=== PATIENT | male | born 1960 | race African-American/Black ===

== ENCOUNTER 2017-11-08 11:43 | Emergency (ER) | payer OTHER ==
[~2017-11-08] VITALS: Ht 172.7 cm; Wt 66.2 kg
[2017-11-08] MEDS ORDERED: NORVASC2.5 MG PO (11:54)
[2017-11-08 14:29] LABS: URINE BILIRUBIN NEGATIVE (Negative); URINE BLOOD NEGATIVE (Negative); URINE CLARITY CLEAR; URINE COLOR YELLOW; URINE GLUCOSE-RANDOM* NEGATIVE (Negative); URINE KETONES NEGATIVE (Negative); URINE NITRITE-REFLEX NEGATIVE (Negative); URINE PROTEIN (DIPSTICK) TRACE (Negative); URINE SPECIFIC GRAVITY <= 1.005 (1.005-1.035)
[2017-11-08 14:32] LABS: ABSOLUTE NEUTROPHILS 14.8 thou/uL (1.4-8.2); BASOPHILS 0.2 % (0.0-2.0); EOSINOPHILS 0.1 % (0.0-3.0); HEMATOCRIT 40.3 % (42.0-52.0); HEMOGLOBIN 13.9 gm/dL (14.0-18.0); LYMPHOCYTES 4.9 % (24.0-44.0); MCHC 34.6 g/dL (28.0-37.0); MCV 69.6 fL (80.0-100.0); MONOCYTES 11.3 % (1.0-8.0); PLATELET COUNT 223 thou/uL (150-400); POLYS 83.5 % (36.0-66.0); RBC 5.79 mil/uL (4.50-6.00); RDW 15.4 % (10.5-14.5); WBC 17.7 thou/uL (4.0-11.0)
[2017-11-08 14:40] LABS: URINE LEUKOCYTES-REFLEX TRACE (Negative)
[2017-11-08 15:04] LABS: MICROCYTES SLIGHT; POLYCHROMASIA OCCASIONAL
[2017-11-08 15:30] LABS: CREATININE 1.1 mg/dL (0.7-1.3); POTASSIUM 3.4 mmol/L (3.5-5.1)
[2017-11-08] MEDS ORDERED: CIPRO500 MG PO (15:46)
[2017-11-08] MEDS ORDERED: NORCO 5-325 TA1 EACH PO (16:06)
[2017-11-08 16:15] VITALS: BP 134/87
== END 2017-11-08 16:15 | disposition home or self-care (01) ==
LOC: ER 11:43
PROVIDERS: Nurse Practitioner Family
DX: N45.1 Epididymitis (principal); F17.210 Nicotine dependence, cigarettes, uncomplicated

== ENCOUNTER 2017-11-10 07:41 | Emergency (ER) | payer OTHER ==
[~2017-11-10] VITALS: Ht 172.7 cm; Wt 66.2 kg
[~2017-11-10 07:41] MED LIST: CIPRO500 MG PO; NORCO 5-325 TA1 EACH PO; NORVASC2.5 MG PO
[2017-11-10 08:38] LABS: URINE BILIRUBIN NEGATIVE (Negative); URINE BLOOD NEGATIVE (Negative); URINE CLARITY CLEAR; URINE COLOR YELLOW; URINE GLUCOSE-RANDOM* NEGATIVE (Negative); URINE KETONES NEGATIVE (Negative); URINE LEUKOCYTES NEGATIVE (Negative); URINE NITRITE NEGATIVE (Negative); URINE PROTEIN (DIPSTICK) NEGATIVE (Negative); URINE UROBILINOGEN 0.2 E.U./dl (0.2-1.0)
[2017-11-10 09:08] LABS: CALCIUM 8.9 mg/dL (8.5-10.1); POTASSIUM 3.6 mmol/L (3.5-5.1)
[2017-11-10 09:14] LABS: ALBUMIN 3.3 g/dL (3.4-5.0); DIRECT BILIRUBIN 0.1 mg/dL (<0.1-0.3); TOTAL BILIRUBIN 0.4 mg/dL (<0.1-1.0)
[2017-11-10 09:17] LABS: HEMATOCRIT 40.2 % (42.0-52.0); HEMOGLOBIN 13.9 gm/dL (14.0-18.0); LYMPHOCYTES 6.2 % (24.0-44.0); MCHC 34.4 g/dL (28.0-37.0); MCV 69.7 fL (80.0-100.0); MONOCYTES 9.4 % (1.0-8.0); PLATELET COUNT 245 thou/uL (150-400); POLYS 82.4 % (36.0-66.0); RBC 5.77 mil/uL (4.50-6.00); RDW 15.4 % (10.5-14.5); WBC 9.7 thou/uL (4.0-11.0)
[2017-11-10] MEDS ORDERED: PERCOCET 5-3251 EACH PO (10:38)
[2017-11-10 11:19] VITALS: BP 139/84
== END 2017-11-10 11:20 | disposition home or self-care (01) ==
LOC: ER 07:41
PROVIDERS: Emergency Medicine
DX: N50.82 Scrotal pain (principal); N50.89 Other specified disorders of the male genital organs; F17.210 Nicotine dependence, cigarettes, uncomplicated